=== PATIENT | female | born 1940 | race Two or more races ===

== ENCOUNTER 2022-07-29 11:03 | Emergency (ER) | payer OTHER ==
[~2022-07-29] VITALS: Ht 152.4 cm; Wt 54.4 kg
[2022-07-29] MEDS ORDERED: METFORMIN500 MG/5 M PO (11:26)
== END 2022-07-29 14:23 | disposition home or self-care (01) ==
LOC: ER 11:03
DX: M25.562 Pain in left knee (principal); W18.39XA Other fall on same level, initial encounter; Y93.89 Activity, other specified; Y92.018 Other place in single-family (private) house as the place of occurrence of the external cause